=== PATIENT | male | born 1995 | race Asian ===

== ENCOUNTER → 2018-05-25 | Outpatient (CLI) | payer OTHER | END | disposition home or self-care (01) | LOC: LABPV 12:05 | PROVIDERS: ATTEND Internal Medicine | DX: Z11.59 Encounter for screening for other viral diseases (principal) | CPT/HCPCS: 86803; 87340 ==

== ENCOUNTER 2020-03-17 12:19 | Emergency (ER) | payer OTHER ==
[~2020-03-17] VITALS: Ht 180.3 cm; Wt 106.8 kg
[2020-03-17 12:21] VITALS: BP 139/89
== END 2020-03-17 13:56 | disposition home or self-care (01) ==
LOC: EMS 12:20
DX: J06.9 Acute upper respiratory infection, unspecified (principal); M79.10 Myalgia, unspecified site; F17.210 Nicotine dependence, cigarettes, uncomplicated; Z20.828 Contact with and (suspected) exposure to other viral communicable diseases
CPT/HCPCS: 99283; 99406; U0003